=== PATIENT | male | born 1960 | race Caucasian/White ===

== ENCOUNTER 2016-12-17 10:33 | Outpatient (CLI) | payer OTHER ==
--- NOTE | 2016-12-17 11:43 | DIAGNOSTIC IMAGING REPORT ---
PROCEDURE: MR LUMBAR SPINE W/O CONTRAST INDICATION: RADICULOPATHY AT L-5 TECHNIQUE: Noncontrast T1, T2, and STIR sagittal images. T1 and T2 axial images. COMPARISON: Lumbar spine MRI dated 10/12/2014 FINDINGS: L1-2:Normal disc. Mild facet arthropathy. No spinal or foraminal stenosis. L2-3: Desiccation of the disc with minor bulging. No spinal or foraminal stenosis. Mild facet arthropathy. L3-4: Mild bilateral foraminal disc bulging and/spur complex with mild bilateral foraminal stenosis. No spinal stenosis. Moderate facet arthropathy L4-5: There is bulging disc at L4-5 which is greater on the left. This is indenting the thecal sac. L5-S1: There is a central herniated disc indenting the thecal sac. IMPRESSION: 1. Bulging disc L4-5 with thecal sac compression on the left. 2. Herniated nucleus pulposus L5-S1 midline central.
== END 2016-12-17 23:00 ==
LOC: MRI SRH 10:33
DX: M51.26 Other intervertebral disc displacement, lumbar region (principal); M51.27 Other intervertebral disc displacement, lumbosacral region